=== PATIENT | female | born 1985 | race Caucasian/White ===

== ENCOUNTER → 2019-08-31 | Outpatient (CLI) | payer OTHER ==
[~2019-08-31] MED LIST: ACETAMINOPHEN325 M1 PO; APAP500 PO; CALCIUM; CALCIUM PO; DERMOPLAST SPRA56 ML; HYDROCODONE-AP1 EAC6; HYDROCORTISONE30 G9 RE; IBUPROFEN 600600 M1 PO; IBUPROFEN 800800 M1; IRON325; LANOLIN56 GM; LORTAB 5 MG/5001 TAB PO; NORCO 5-325 TA1 EACH; NORCO 5-325 TA1 EACH PO; ONDANSETRON ODT8 MG PO; PHENERGAN 25 MG25 M1 PO; PRENATAL PO; SENNA PO; TUCKS MEDICATE1 EAC1
== END ==
LOC: CAT 12:30
DX: R10.31 Right lower quadrant pain (principal); R50.9 Fever, unspecified; J18.9 Pneumonia, unspecified organism

== ENCOUNTER → 2020-11-06 | Outpatient (CLI) | payer OTHER | LOC: LAB 10:14 | PROVIDERS: ATTEND Nurse Practitioner | DX: Z20.828 Contact with and (suspected) exposure to other viral communicable diseases (principal) ==